=== PATIENT | female | born 1985 | race African-American/Black ===

== ENCOUNTER 2017-11-26 07:05 | Emergency (ER) | payer MEDICARE, MEDICAID ==
[~2017-11-26] VITALS: Ht 167.6 cm; Wt 75.0 kg
[2017-11-26 07:10] VITALS: BP 134/76
[2017-11-26] MEDS: LACTATED RINGERS 1,000 ML IV SCH ×3 (08:57→14:37)
[2017-11-26 09:06] LABS: BASOPHILS % 0.9 % (0.0-2.0); EOSINOPHILS % 0.8 % (0.0-5.0); HEMATOCRIT. 29.4 % (36.0-48.0); HEMOGLOBIN. 9.7 g/dL (12.0-16.0); LYMPHOCYTES % 30.7 % (20.0-50.0); MEAN CORPUSCULAR HEMOGLOBIN 32.1 pg (28.0-32.0); MEAN CORPUSCULAR VOLUME 97.1 fL (81.0-99.0); MEAN PLATELET VOLUME 9.7 fl (7.4-10.4); MONOCYTES % 9.2 % (2.0-8.0); NEUTROPHILS % 58.4 % (40.0-76.0); PLATELET 217 x1000/uL (130-400); RED BLOOD CELL COUNT 3.03 mill/uL (4.2-5.4); RED CELL DISTRIBUTION WIDTH 13.3 % (11.6-14.6)
[2017-11-26 09:09] LABS: CLARITY URINE CLEAR (CLEAR); COLOR URINE YELLOW (YELLOW); KETONES URINE NEGATIVE (NEGATIVE); LEUKOCYTE ESTERASE URINE 3+ (NEGATIVE); NITRITE URINE NEGATIVE (NEGATIVE); OCCULT BLOOD URINE NEGATIVE (NEGATIVE); PH URINE 8.5 (4.5-8.0); PROTEIN URINE NEGATIVE (NEGATIVE); SPECIFIC GRAVITY URINE 1.011 (1.005-1.030)
[2017-11-26 09:18] LABS: PARTIAL THROMBOPLASTIN TIME 28.6 sec (23.4-31.0)
[2017-11-26 09:45] LABS: *AMPHETAMINES SCREEN URINE NEGATIVE (NEGATIVE); *BARBITURATES SCREEN URINE NEGATIVE (NEGATIVE); *BENZODIAZEPINES SCREEN URINE NEGATIVE (NEGATIVE); *COCAINE SCREEN URINE NEGATIVE (NEGATIVE); CANNABINOID URINE SCREEN NEGATIVE (NEGATIVE); METHADONE URINE SCREEN NEGATIVE (NEGATIVE); OPIATES URINE SCREEN NEGATIVE (NEGATIVE); PHENCYCLIDINE URINE SCREEN NEGATIVE (NEGATIVE)
== END 2017-11-26 15:45 | disposition home or self-care (01) ==
LOC: ER 07:36 → L&D 07:48
PROVIDERS: ADMIT Specialist; ATTEND Specialist
DX: O26.893 Other specified pregnancy related conditions, third trimester (principal); R10.32 Left lower quadrant pain; Z3A.36 36 weeks gestation of pregnancy
CPT/HCPCS: 36415; 76805; 76818; 80305; 81003; 85025; 85610; 85730; 86592; 86703; 87070; 87086; 96360; 96361; 99281; G0378; J7120

== ENCOUNTER 2017-11-27 06:36 | Observation (INO) | payer MEDICARE, MEDICAID ==
[~2017-11-27] VITALS: Ht 167.6 cm; Wt 74.8 kg
== END 2017-11-27 09:00 | disposition home or self-care (01) ==
LOC: L&D 06:36
PROVIDERS: ADMIT Specialist; ATTEND Specialist
DX: O62.9 Abnormality of forces of labor, unspecified (principal); Z3A.36 36 weeks gestation of pregnancy
CPT/HCPCS: 76815; 76818; 99281; G0378

== ENCOUNTER 2017-12-05 20:13 | Inpatient (IN) | payer MEDICARE, MEDICAID ==
[~2017-12-05] VITALS: Ht 167.6 cm; Wt 63.5 kg
[2017-12-05] MEDS ORDERED: ACETAMINOPHEN 500MG TABLET PO NR (21:00)
[2017-12-05] MEDS: LACTATED RINGERS 1,000 ML IV SCH ×2 (21:08→21:31)
[2017-12-05] MEDS ORDERED: PREN1TAB45 PO (21:18)
[2017-12-05] MEDS ORDERED: FERR220S12 PO (21:18)
[2017-12-05] MEDS ORDERED: DEXT 5%/LR + PITOCIN 20UNITS/L 1,000 ML IV SCH ×2 (21:25→23:35)
[2017-12-05] MEDS ORDERED: LACTATED RINGERS 1,000 ML IV SCH (21:25)
[2017-12-05] MEDS ORDERED: BUTORPHANOL TARTRATE 2 MG/ML VIAL IM PRN (21:30)
[2017-12-05] MEDS ORDERED: METHYLERGONOVINE MALEATE 0.2 MG/ML IM PRN (21:30)
[2017-12-05] MEDS ORDERED: CARBOPROST TROMETHAMINE 250 MCG/ML AMPUL IM PRN (21:30)
[2017-12-05] MEDS ORDERED: LIDOCAINE HCL 1% 20ML VIAL (Pyxis) INJ INFIL SCH (21:30)
[2017-12-05] MEDS ORDERED: NALOXONE HCL 0.4 MG/ML 1ML VIAL IM PRN (21:30)
[2017-12-05 21:51] LABS: BASOPHILS % 0.6 % (0.0-2.0); EOSINOPHILS % 0.5 % (0.0-5.0); HEMOGLOBIN. 11.2 g/dL (12.0-16.0); LYMPHOCYTES % 37.4 % (20.0-50.0); MEAN CORPUSCULAR HEMOGLOBIN 31.7 pg (28.0-32.0); MEAN CORPUSCULAR VOLUME 96.4 fL (81.0-99.0); MEAN PLATELET VOLUME 9.6 fl (7.4-10.4); MONOCYTES % 7.3 % (2.0-8.0); NEUTROPHILS % 54.2 % (40.0-76.0); PLATELET 222 x1000/uL (130-400); RED BLOOD CELL COUNT 3.53 mill/uL (4.2-5.4); RED CELL DISTRIBUTION WIDTH 13.2 % (11.6-14.6)
[2017-12-05 21:55] LABS: CLARITY URINE CLOUDY (CLEAR); COLOR URINE YELLOW (YELLOW); KETONES URINE NEGATIVE (NEGATIVE); LEUKOCYTE ESTERASE URINE 1+ (NEGATIVE); NITRITE URINE NEGATIVE (NEGATIVE); OCCULT BLOOD URINE NEGATIVE (NEGATIVE); PROTEIN URINE NEGATIVE (NEGATIVE); SPECIFIC GRAVITY URINE 1.016 (1.005-1.030)
[2017-12-05 21:58] LABS: INR 0.9; PARTIAL THROMBOPLASTIN TIME 27.8 sec (23.4-31.0); PROTHROMBIN TIME 9.8 sec (9.4-11.6)
[2017-12-05 22:19] LABS: *AMPHETAMINES SCREEN URINE NEGATIVE (NEGATIVE); *BARBITURATES SCREEN URINE NEGATIVE (NEGATIVE); *BENZODIAZEPINES SCREEN URINE NEGATIVE (NEGATIVE); *COCAINE SCREEN URINE NEGATIVE (NEGATIVE); CANNABINOID URINE SCREEN NEGATIVE (NEGATIVE); METHADONE URINE SCREEN NEGATIVE (NEGATIVE); OPIATES URINE SCREEN NEGATIVE (NEGATIVE); PHENCYCLIDINE URINE SCREEN NEGATIVE (NEGATIVE)
[2017-12-05 22:31] LABS: HEPATITIS B SURFACE ANTIGEN NEGATIVE; RUBELLA IGG 112.9 IU/mL (4.99-10)
[2017-12-05] MEDS ORDERED: RHO(D) IMMUNE GLOBULIN 300 MCG/SYR IM PRN (23:45)
[2017-12-05] MEDS ORDERED: IBUPROFEN 400MG TABLET PO PRN (23:45)
[2017-12-06] VITALS (8 sets, daily range): BP systolic 124–135; BP diastolic 72–84
[2017-12-06] MEDS: IBUPROFEN 800MG TABLET PO PRN ×3 (06:03→23:04)
[2017-12-06 07:19] LABS: BASOPHILS % 0.3 % (0.0-2.0); HEMATOCRIT. 31.8 % (36.0-48.0); HEMOGLOBIN. 10.5 g/dL (12.0-16.0); MEAN CORPUSCULAR HEMOGLOBIN 31.8 pg (28.0-32.0); MEAN CORPUSCULAR VOLUME 96.7 fL (81.0-99.0); MEAN PLATELET VOLUME 9.8 fl (7.4-10.4); NEUTROPHILS % 84.7 % (40.0-76.0); PLATELET 209 x1000/uL (130-400); RED BLOOD CELL COUNT 3.29 mill/uL (4.2-5.4); RED CELL DISTRIBUTION WIDTH 13.1 % (11.6-14.6)
[2017-12-06] MEDS: PRENATAL VIT/FE FUMARATE/FA TABLET PO SCH (09:17)
[2017-12-07 08:00] VITALS: BP 127/82
[2017-12-07] MEDS: PRENATAL VIT/FE FUMARATE/FA TABLET PO SCH (08:11)
[2017-12-07 08:12] VITALS: BP 124/80
[2017-12-07] MEDS: IBUPROFEN 800MG TABLET PO PRN (08:12)
== END 2017-12-07 14:30 | disposition home or self-care (01) | DRG 775 ==
LOC: OBSVTOIN 20:13 → L&D 20:13 → 7EST PP/OB 12-06 00:41
PROVIDERS: ADMIT Obstetrics & Gynecology; ATTEND Obstetrics & Gynecology
PROC: 0W8NXZZ Division of Female Perineum, External Approach (ICD-10-PCS; 2017-12-05)
PROC: 10E0XZZ Delivery of Products of Conception, External Approach (ICD-10-PCS; principal; 2017-12-05 22:52)
DX: O99.52 Diseases of the respiratory system complicating childbirth (principal); D62 Acute posthemorrhagic anemia; Z37.0 Single live birth; J45.909 Unspecified asthma, uncomplicated; O99.02 Anemia complicating childbirth; Z3A.40 40 weeks gestation of pregnancy
CPT/HCPCS: 36415; 80305; 81003; 85025; 85610; 85730; 86592; 86703; 86762; 86850; 86900; 87340; J0595; J2590; J3490; J7120; A4315

== ENCOUNTER 2019-04-10 09:56 | Observation (INO) | payer MEDICARE, MEDICAID ==
[~2019-04-10] VITALS: Ht 170.2 cm; Wt 79.4 kg
[2019-04-10] MEDS ORDERED: PREN-118 PO (11:25)
[2019-04-10 12:33] LABS: CLARITY URINE CLOUDY (CLEAR); COLOR URINE DARK YELLOW (YELLOW); KETONES URINE TRACE (NEGATIVE); LEUKOCYTE ESTERASE URINE 2+ (NEGATIVE); NITRITE URINE NEGATIVE (NEGATIVE); OCCULT BLOOD URINE NEGATIVE (NEGATIVE); PROTEIN URINE NEGATIVE (NEGATIVE); SPECIFIC GRAVITY URINE 1.022 (1.005-1.030)
== END 2019-04-10 10:59 | disposition home or self-care (01) ==
LOC: 8 EST LDRP 09:56
PROVIDERS: ADMIT Obstetrics & Gynecology; ATTEND Obstetrics & Gynecology
DX: O26.893 Other specified pregnancy related conditions, third trimester (principal); R10.9 Unspecified abdominal pain; Z3A.31 31 weeks gestation of pregnancy
CPT/HCPCS: 76805; 76818; 81003; 87086; 99281; G0378

== ENCOUNTER 2019-07-16 15:01 | Emergency (ER) | payer MEDICARE, MEDICAID ==
[~2019-07-16] VITALS: Ht 170.2 cm; Wt 67.0 kg
[~2019-07-16 15:01] MED LIST: PREN-118 PO
[2019-07-16] MEDS ORDERED: KETOROLAC 60MG/2ML VIAL IM ONE (18:30)
[2019-07-16] MEDS ORDERED: DEXAMETHASONE 10 MG/ML VIAL IM ONE (18:30)
[2019-07-16 19:53] VITALS: BP 122/87
== END 2019-07-16 20:11 | disposition home or self-care (01) ==
LOC: ER 15:01
DX: M54.40 Lumbago with sciatica, unspecified side (principal); R13.10 Dysphagia, unspecified; F17.210 Nicotine dependence, cigarettes, uncomplicated
CPT/HCPCS: 81025; 96372; 99283; J1100; J1885